=== PATIENT | male | born 1965 | race American Indian/Alaskan Native ===

== ENCOUNTER 2017-01-24 19:58 | Inpatient (IN) | payer MEDICAID ==
[~2017-01-24] VITALS: Ht 172.7 cm; Wt 76.7 kg
[~2017-01-24 19:58] MED LIST: LISI-167 PO; METF500T4 PO; SIMV10TA3 PO
[2017-01-24] MEDS ORDERED: METOPROLOL 1 MG/ML, 5ML ONE ×2 (20:29→21:01)
[2017-01-24] MEDS ORDERED: LORazepam 2 MG/ML, 1ML IVPush ONE ×3 (20:30→22:30)
[2017-01-24] MEDS ORDERED: LORazepam 2 MG/ML, 1ML ONE ×2 (20:30→22:05)
[2017-01-24] MEDS ORDERED: ASPIRIN 81 MG TABLET CHEW ONE (20:30)
[2017-01-24] MEDS ORDERED: SODIUM CHLORIDE 0.9% 1,000ML IVBOLUS ONE (20:30)
[2017-01-24] MEDS ORDERED: ASPIRIN 81 MG TABLET CHEW PO ONE (20:30)
[2017-01-24] MEDS ORDERED: SODIUM CHLORIDE FLUSH 10ML SYR IVF ONE (20:30)
[2017-01-24] MEDS: METOPROLOL 1 MG/ML, 5ML IVPush PRN ×3 (20:36→21:12)
[2017-01-24 20:55] LABS: ASPARTATE AMINO TRANSFERASE 149 U/L (15-37); BLOOD UREA NITROGEN 10 mg/dL (7-18)
[2017-01-24] MEDS ORDERED: METF10002 PO (20:55)
[2017-01-24] MEDS ORDERED: ASPI-496 PO (20:55)
[2017-01-24] MEDS ORDERED: METO50TA82 PO (20:55)
[2017-01-24 21:00] LABS: IS PT STATUS REG ER OR PRE ER? YES
[2017-01-24] MEDS ORDERED: METOPROLOL TARTRATE 50 MG TABLET ONE (21:58)
[2017-01-24] MEDS ORDERED: METOPROLOL TARTRATE 50 MG TABLET PO ONE (22:00)
[2017-01-25 01:30] VITALS: BP 132/79
[2017-01-25] MEDS ORDERED: POTASSIUM CHLORIDE 20 MEQ, MAGNESIUM SULFATE 2 GM, THIAMINE 100 MG, MVI ADULT 10 ML, FO... IV SCH (01:41)
[2017-01-25 02:00] VITALS: BP 115/82
[2017-01-25] MEDS ORDERED: hydrALAzine 20 MG/ML, 1ML IVPush PRN (02:00)
[2017-01-25] MEDS ORDERED: OXYcodone IR 5MG TABLET PO PRN (02:00)
[2017-01-25] MEDS ORDERED: ENALAPRILAT 1.25 MG/ML, 2ML IVPush PRN ×2 (02:00→12:20)
[2017-01-25] MEDS ORDERED: POTASSIUM CHLORIDE 40 MEQ in SODIUM CHLORIDE 0.9% 500 ML IV ONE (02:00)
[2017-01-25] MEDS ORDERED: ONDANSETRON 2MG/ML, 2ML IVPush PRN (02:00)
[2017-01-25] MEDS ORDERED: DOCUSATE 100 MG CAPSULE PO PRN (02:00)
[2017-01-25] MEDS ORDERED: BISACODYL 10 MG SUPP PR PRN (02:00)
[2017-01-25] MEDS ORDERED: POLYETHYLENE GLYCOL 17 GM PACKET PO PRN (02:00)
[2017-01-25] MEDS ORDERED: morphine SULFATE 10 MG/ML, 1ML IVPush PRN (02:00)
[2017-01-25] MEDS ORDERED: LORazepam 1MG TABLET PO PRN ×4 (02:30)
[2017-01-25] MEDS ORDERED: LORazepam 0.5MG TABLET PO PRN (02:30)
[2017-01-25] MEDS ORDERED: LORazepam 2 MG/ML, 1ML IV PRN ×5 (02:30)
[2017-01-25] MEDS: HEPARIN 5,000 UNITS/ML, 1ML SQ SCH ×3 (02:41→17:48)
[2017-01-25] MEDS: INSULIN ASPART 100 UNITS/ML, PEN SQ-INSULIN SCH ×5 (03:14→20:47)
[2017-01-25 03:30] LABS: PATH.CAST-FLAG NOT PRESENT; SPERM-FLAG NOT PRESENT; SRC-FLAG NOT PRESENT; XTAL-FLAG NOT PRESENT; YLC-FLAG NOT PRESENT
[2017-01-25] MEDS ORDERED: ATOR20TA PO (04:12)
[2017-01-25] MEDS ORDERED: OMEG1CAP6 PO (04:15)
[2017-01-25] MEDS: ASPIRIN 325 MG TABLET EC PO SCH (05:55)
[2017-01-25 06:47] VITALS: BP 116/82
[2017-01-25] MEDS: METOPROLOL TARTRATE 50 MG TABLET PO SCH ×2 (07:51→20:45)
[2017-01-25 08:51] LABS: ASPARTATE AMINO TRANSFERASE 93 U/L (15-37); BLOOD UREA NITROGEN 10 mg/dL (7-18)
[2017-01-25] MEDS ORDERED: TEMPLATE NON-FORMULARY MED. (Metformin Hcl** 1,000 MG) PO SCH (09:00)
[2017-01-25] MEDS ORDERED: ASPIRIN 81 MG TABLET EC PO SCH (09:00)
[2017-01-25 15:09] VITALS: BP 106/84
[2017-01-25 18:36] VITALS: BP 116/68
[2017-01-26 00:15] VITALS: BP 96/74
[2017-01-26] MEDS: HEPARIN 5,000 UNITS/ML, 1ML SQ SCH (02:43)
[2017-01-26 05:36] LABS: BLOOD UREA NITROGEN 13 mg/dL (7-18)
[2017-01-26] MEDS: ASPIRIN 325 MG TABLET EC PO SCH (05:36)
[2017-01-26 05:39] LABS: ASPARTATE AMINO TRANSFERASE 87 U/L (15-37)
[2017-01-26 06:54] LABS: DIFF TOTAL CELLS COUNTED 100 CELL DIFF
[2017-01-26 06:57] LABS: VERIFY COUNTS? YES
[2017-01-26 06:58] LABS: LARGE PLATELETS 1+
[2017-01-26] MEDS ORDERED: MULTIVITAMIN 1 TABLET PO SCH (09:00)
[2017-01-26] MEDS ORDERED: THIAMINE 100MG TABLET PO SCH (09:00)
[2017-01-26] MEDS ORDERED: FOLIC ACID 1 MG TABLET PO SCH (09:00)
[2017-01-26] MEDS ORDERED: POTASSIUM CHLORIDE 20 MEQ, MAGNESIUM SULFATE 2 GM, THIAMINE 100 MG, MVI ADULT 10 ML, FO... IV SCH (09:00)
[2017-01-26] MEDS ORDERED: SODIUM CHLORIDE 0.9% 1,000 ML IV SCH ×2 (17:00)
== END 2017-01-26 07:32 | disposition left against medical advice (07) | DRG 894 ==
LOC: ED 22:18 → EDIP 22:29 → 4WST 01-25 00:41
PROVIDERS: ADMIT Internal Medicine; ATTEND Internal Medicine
DX: F10.239 Alcohol dependence with withdrawal, unspecified (principal); N17.0 Acute kidney failure with tubular necrosis; E87.2 Acidosis; E87.1 Hypo-osmolality and hyponatremia; D68.69 Other thrombophilia; I48.92 Unspecified atrial flutter; R56.9 Unspecified convulsions; E87.6 Hypokalemia; I10 Essential (primary) hypertension; E78.5 Hyperlipidemia, unspecified; K70.10 Alcoholic hepatitis without ascites; E11.65 Type 2 diabetes mellitus with hyperglycemia; F17.200 Nicotine dependence, unspecified, uncomplicated; Z53.21 Procedure and treatment not carried out due to patient leaving prior to being seen by health care provider; I48.0 Paroxysmal atrial fibrillation; Z79.82 Long term (current) use of aspirin; Z79.899 Other long term (current) drug therapy; Z79.84 Long term (current) use of oral hypoglycemic drugs
CPT/HCPCS: 36415; 71010; 80053; 80061; 80307; 81001; 82010; 82800; 82962; 83036; 83735; 84439; 84443; 84484; 85025; 85610; 85730; 93005; 96361; 96374; 96375; 96376; J1644; J1815; J3411; J3475; J3480; J7042; J2060; J7030; J7040

== ENCOUNTER 2017-06-23 17:00 | Emergency (ER) | payer MEDICAID ==
[~2017-06-23] VITALS: Ht 172.7 cm; Wt 80.9 kg
[~2017-06-23 17:00] MED LIST changes: +ASPI-496 PO; +ATOR20TA PO; +METF10002 PO; +METO50TA82 PO; +OMEG1CAP6 PO; +WARF4TAB PO
[2017-06-23] MEDS ORDERED: SOTA80TA PO (17:51)
[2017-06-23 18:33] LABS: HEMATOCRIT 41.3 % (39.2-51.8); HEMOGLOBIN 14.1 g/dL (13.7-18.0); WHITE BLOOD COUNT 5.3 x10^3/uL (3.4-10)
[2017-06-23 18:38] LABS: BLOOD UREA NITROGEN 19 mg/dL (7-18)
[2017-06-23] MEDS ORDERED: PHYTONADIONE 5 MG TABLET PO ONE (19:30)
[2017-06-23 19:44] VITALS: BP 115/81
== END 2017-06-23 20:10 | disposition home or self-care (01) ==
LOC: ED 19:25
DX: T45.515A Adverse effect of anticoagulants, initial encounter (principal); E11.9 Type 2 diabetes mellitus without complications; E78.5 Hyperlipidemia, unspecified; I48.91 Unspecified atrial fibrillation; I10 Essential (primary) hypertension; I25.2 Old myocardial infarction; Z79.01 Long term (current) use of anticoagulants
CPT/HCPCS: 36415; 80048; 81001; 82040; 85025; 85610; 85730; 87086; 99284

== ENCOUNTER 2017-09-02 22:01 | Emergency (ER) | payer MEDICAID ==
[~2017-09-02] VITALS: Ht 172.7 cm; Wt 80.0 kg
[~2017-09-02 22:01] MED LIST changes: +SOTA80TA PO
[2017-09-02 22:05] VITALS: BP 146/97
== END 2017-09-02 22:53 | disposition left against medical advice (07) ==
LOC: ED 22:18
DX: F10.220 Alcohol dependence with intoxication, uncomplicated (principal); S09.90XA Unspecified injury of head, initial encounter; E11.65 Type 2 diabetes mellitus with hyperglycemia; I48.91 Unspecified atrial fibrillation; I25.2 Old myocardial infarction; Z79.84 Long term (current) use of oral hypoglycemic drugs; W19.XXXA Unspecified fall, initial encounter; Y93.89 Activity, other specified; Y99.8 Other external cause status; Y92.009 Unspecified place in unspecified non-institutional (private) residence as the place of occurrence of the external cause
CPT/HCPCS: 70450; 99284

== ENCOUNTER 2017-10-13 18:01 | Emergency (ER) | payer MEDICAID ==
[2017-10-13 18:28] VITALS: BP 109/64
== END 2017-10-13 19:00 ==
LOC: ED 18:25
DX: F10.120 Alcohol abuse with intoxication, uncomplicated (principal); I10 Essential (primary) hypertension; E11.9 Type 2 diabetes mellitus without complications; I25.2 Old myocardial infarction; E78.5 Hyperlipidemia, unspecified; I48.91 Unspecified atrial fibrillation; Z91.14 Patient's other noncompliance with medication regimen
CPT/HCPCS: 99283

== ENCOUNTER 2018-09-05 12:33 | Inpatient (IN) | payer MEDICAID ==
[~2018-09-05] VITALS: Ht 152.4 cm; Wt 72.7 kg
[~2018-09-05 12:33] MED LIST changes: +METF500T17 PO; -METF500T4 PO
--- NOTE | 2018-09-05 12:45 | NUR ---
PT C/O INCREASING SOB ON EXERTION FOR LAST 2 WEEKS WITH HX OF A-FIB. PT REPORTS NOT TAKING HIS COUMADIN FOR 2 MONTHS DUE TO BLEEDING COMPLICATIONS FROM COUMADIN. PT ON MONITOR. IV STARTED. WAITING FOR RESULTS.
[2018-09-05] MEDS ORDERED: ASPIRIN 81 MG TABLET CHEW ONE (12:59)
[2018-09-05] MEDS ORDERED: ASPIRIN 81 MG TABLET CHEW PO ONE (13:00)
[2018-09-05] MEDS ORDERED: SODIUM CHLORIDE FLUSH 10ML SYR IVF ONE (13:00)
[2018-09-05 13:20] LABS: MEAN CORPUSCULAR HEMOGLOBIN 36.4 pg (27.5-34.5); MEAN CORPUSCULAR HGB CONC 34.3 g/dL (33.2-36.2); MEAN CORPUSCULAR VOLUME 106.1 fL (81-97); PLATELET COUNT 271 x10^3/uL (130-400); RED BLOOD COUNT 3.69 x10^6/uL (4.38-5.82); RED CELL DISTRIBUTION WIDTH 15.2 % (9.4-14.8)
[2018-09-05 13:26] LABS: INTERNATIONAL NORMALIZED RATIO 1.4 (0.93-1.1); PROTHROMBIN TIME 14.5 Seconds (9.6-11.5)
[2018-09-05 13:28] LABS: ALANINE AMINOTRANSFERASE 132 U/L (12-78); ALBUMIN 2.3 g/dL (3.4-5.0); ANION GAP 9 mmol/L (5-15); CALCIUM 7.6 mg/dL (8.5-10.1); CHLORIDE 94 mmol/L (98-107); CREATININE 1.15 mg/dL (0.7-1.3)
[2018-09-05 13:32] LABS: ALKALINE PHOSPHATASE 200 U/L (45-117); BILIRUBIN,TOTAL 8.4 mg/dL (0.2-1.0); TOTAL PROTEIN 7.4 g/dL (6.4-8.2); TROPONIN I < 0.015 ng/mL (0.000-0.045)
[2018-09-05 13:35] LABS: MD YES
[2018-09-05 13:52] LABS: <PLATELET ESTIMATE> ADEQUATE; ANISOCYTOSIS 1+; BAND#(MANUAL) 0.45 x10^3/uL; BANDS%(MANUAL) 4 % (0-7); EOS#(MANUAL) 0.23 x10^3/uL (0.0-0.4); EOS% (MANUAL) 2 % (1-7); LARGE PLATELETS 1+; LYMPHS% (MANUAL) 8 % (22-44); MONOS#(MANUAL) 0.57 x10^3/uL (0.3-2.7); MONOS% (MANUAL) 5 % (2-9); POLYCHROMASIA 1+; SEG#(MANUAL) 9.15 x10^3/uL (1.8-6.8); SEGS% (MANUAL) 81 % (42-75)
[2018-09-05] MEDS ORDERED: OMNIPAQUE 350 MG/ML, 100ML BOTTLE ONE (14:35)
--- NOTE | 2018-09-05 14:59 | NUR ---
Ana Maria alvarez in ED - 09/05/18 at 1500 by GWENDOLYN PT MEDICATED FOR PAIN. 3 P'S ADDRESSED. PT UP FOR MED RECHECK.
--- NOTE | 2018-09-05 15:00 | NUR ---
PT NOE IN [facility] IN [facility]. VSS.
--- NOTE | 2018-09-05 15:18 | NUR ---
PT IN [place].
--- NOTE | 2018-09-05 16:27 | NUR ---
BREAK RN: PT TO BE ADMITTED TO CARD TELE, AWAITING BED.
[2018-09-05] MEDS ORDERED: SODIUM CHLORIDE FLUSH 10ML SYR IVF PRN (16:30)
[2018-09-05] MEDS ORDERED: MORPHINE SULFATE 4 MG/ML, 1ML IVPush PRN (17:00)
[2018-09-05] MEDS ORDERED: ONDANSETRON 2MG/ML, 2ML IVPush PRN (17:00)
[2018-09-05] MEDS ORDERED: NITROGLYCERIN 0.4 MG BOTTLE (25 TABS) SL PRN (17:00)
[2018-09-05] MEDS ORDERED: LABETALOL 5MG/ML, 20ML IVPush PRN (17:00)
--- NOTE | 2018-09-05 17:31 | NUR ---
Report called to FATOUMATA Adame
[2018-09-05 19:24] LABS: BILIRUBIN, DIRECT 6.6 mg/dL (0.1-0.2)
[2018-09-05 19:29] LABS: BILIRUBIN,INDIRECT 1.5 mg/dL (0.0-2.0); BILIRUBIN,TOTAL 8.1 mg/dL (0.2-1.0); FREE T4 (FREE THYROXINE) 1.59 ng/dL (0.76-1.46); TROPONIN I < 0.015 ng/mL (0.000-0.045)
[2018-09-05 19:37] LABS: ACETAMINOPHEN < 2 mcg/mL (10-30)
[2018-09-05 20:11] VITALS: BP 101/72
[2018-09-05] MEDS: INSULIN LISPRO 100 UNITS/ML, PEN SQ-INSULIN SCH ×2 (21:00→22:31)
[2018-09-05] MEDS: AMOXICILLIN/CLAV 875-125MG TABLET PO SCH (22:28)
[2018-09-05] MEDS: HEPARIN 5,000 UNITS/ML, 1ML SQ SCH (22:29)
[2018-09-05] MEDS: SOTALOL 80MG TABLET PO SCH (22:29)
[2018-09-05] MEDS: POTASSIUM CHLORIDE 20 MEQ TAB.ER.PRT PO SCH (22:33)
[2018-09-05 22:42] VITALS: BP 109/65
[2018-09-05 23:06] LABS: TROPONIN I < 0.015 ng/mL (0.000-0.045)
[2018-09-06 02:00] VITALS: BP 102/72
[2018-09-06 02:05] LABS: MICROSCOPIC NOT IND
[2018-09-06 02:07] LABS: AMPHETAMINE SCREEN, URINE Negative (Negative); BARBITURATE SCREEN, URINE Negative (Negative); BENZODIAZEPINE SCREEN, URINE Negative (Negative); CANNABINOID SCREEN, URINE Negative (Negative); COCAINE SCREEN, URINE Negative (Negative); METHADONE SCREEN, URINE Negative (Negative); OPIATE SCREEN, URINE Negative (Negative)
[2018-09-06 05:15] LABS: BASOPHILS # (AUTO) 0.01 x10^3/uL (0-0.1); BASOPHILS % (AUTO) 0 % (0-1); EOSINOPHILS # (AUTO) 0.19 x10^3/uL (0-0.4); EOSINOPHILS % (AUTO) 2 % (1-7); LYMPHOCYTES % (AUTO) 20 % (22-44); MD NO; MEAN CORPUSCULAR HEMOGLOBIN 36.2 pg (27.5-34.5); MEAN CORPUSCULAR HGB CONC 33.8 g/dL (33.2-36.2); MEAN CORPUSCULAR VOLUME 107.2 fL (81-97); MONOCYTES % (AUTO) 6 % (2-9); NEUTROPHILS # (AUTO) 7.91 x10^3/uL (1.8-6.8); NEUTROPHILS % (AUTO) 73 % (42-75); PLATELET COUNT 243 x10^3/uL (130-400); RED BLOOD COUNT 3.59 x10^6/uL (4.38-5.82); RED CELL DISTRIBUTION WIDTH 15.6 % (9.4-14.8)
[2018-09-06 05:25] LABS: CALCIUM 7.2 mg/dL (8.5-10.1); CHLORIDE 99 mmol/L (98-107)
[2018-09-06] MEDS: HEPARIN 5,000 UNITS/ML, 1ML SQ SCH (05:37)
[2018-09-06 05:39] LABS: ALANINE AMINOTRANSFERASE 128 U/L (12-78); ALKALINE PHOSPHATASE 178 U/L (45-117); ANION GAP 5 mmol/L (5-15); BILIRUBIN,TOTAL 7.3 mg/dL (0.2-1.0); CREATININE 0.69 mg/dL (0.7-1.3); TOTAL PROTEIN 6.9 g/dL (6.4-8.2)
[2018-09-06] MEDS: INSULIN LISPRO 100 UNITS/ML, PEN SQ-INSULIN SCH ×2 (07:00→11:00)
[2018-09-06 07:09] VITALS: BP 115/80
[2018-09-06] MEDS: AMOXICILLIN/CLAV 875-125MG TABLET PO SCH (08:38)
[2018-09-06] MEDS: SOTALOL 80MG TABLET PO SCH (08:38)
[2018-09-06] MEDS: POTASSIUM CHLORIDE 20 MEQ TAB.ER.PRT PO SCH (08:38)
[2018-09-06] MEDS ORDERED: ASPIRIN 81 MG TABLET EC PO SCH (09:00)
[2018-09-06] MEDS ORDERED: THIAMINE 100MG TABLET PO SCH (09:00)
[2018-09-06] MEDS ORDERED: ASPIRIN 81 MG TABLET CHEW PO SCH (09:00)
[2018-09-06] MEDS ORDERED: MAGNESIUM SULFATE PMX 2GM/50ML 50 ML IV ONE (10:00)
[2018-09-06 10:33] LABS: HEMOGLOBIN A1C 5.4 % (4.2-6.3)
[2018-09-06 12:52] LABS: INTERNATIONAL NORMALIZED RATIO 1.39 (0.93-1.1); PROTHROMBIN TIME 14.4 Seconds (9.6-11.5)
== END 2018-09-06 12:43 | disposition left against medical advice (07) | DRG 603 ==
LOC: ED 16:10 → EDIP 16:11 → ED 16:22 → 5SO 18:40
PROVIDERS: ADMIT Internal Medicine; ATTEND Internal Medicine
DX: L03.031 Cellulitis of right toe (principal); E44.0 Moderate protein-calorie malnutrition; E87.1 Hypo-osmolality and hyponatremia; M86.171 Other acute osteomyelitis, right ankle and foot; N39.0 Urinary tract infection, site not specified; R17 Unspecified jaundice; I48.91 Unspecified atrial fibrillation; D50.9 Iron deficiency anemia, unspecified; D53.9 Nutritional anemia, unspecified; E11.69 Type 2 diabetes mellitus with other specified complication; Z53.21 Procedure and treatment not carried out due to patient leaving prior to being seen by health care provider; E78.5 Hyperlipidemia, unspecified; E83.42 Hypomagnesemia; E87.6 Hypokalemia; F10.10 Alcohol abuse, uncomplicated; I10 Essential (primary) hypertension; Z91.14 Patient's other noncompliance with medication regimen; Z91.81 History of falling
CPT/HCPCS: 36415; 71046; 71275; 74181; 76700; 78227; 80053; 80307; 81003; 82247; 82248; 82607; 82962; 83036; 83690; 83735; 83880; 84439; 84443; 84484; 85025; 85610; 85730; 86038; 93005; 93306; 99285; G0378; J1644; Q9967; A9537; C9898; J1815; J3475

== ENCOUNTER → 2018-12-11 | Outpatient (CLI) | payer MEDICAID ==
[~2018-12-11] MED LIST changes: +MULT-658 PO
[2018-12-11 09:27] LABS: BASOPHILS # (AUTO) 0.04 x10^3/uL (0-0.1); BASOPHILS % (AUTO) 1 % (0-1); EOSINOPHILS # (AUTO) 0.17 x10^3/uL (0-0.4); EOSINOPHILS % (AUTO) 3 % (1-7); LYMPHOCYTES # (AUTO) 2.25 x10^3/uL (1-3.4); LYMPHOCYTES % (AUTO) 41 % (22-44); MD NO; MEAN CORPUSCULAR HEMOGLOBIN 31.6 pg (27.5-34.5); MEAN CORPUSCULAR HGB CONC 33.1 g/dL (33.2-36.2); MEAN CORPUSCULAR VOLUME 95.3 fL (81-97); MEAN PLATELET VOLUME 9.3 fL (7.4-10.4); MONOCYTES # (AUTO) 0.45 x10^3/uL (0.2-0.8); MONOCYTES % (AUTO) 8 % (2-9); NEUTROPHILS # (AUTO) 2.59 x10^3/uL (1.8-6.8); NEUTROPHILS % (AUTO) 47 % (42-75); PLATELET COUNT 124 x10^3/uL (130-400); RED BLOOD COUNT 4.27 x10^6/uL (4.38-5.82); RED CELL DISTRIBUTION WIDTH 13.2 % (9.4-14.8)
[2018-12-11 09:35] LABS: ALANINE AMINOTRANSFERASE 29 U/L (12-78); ALBUMIN 3.6 g/dL (3.4-5.0); ANION GAP 4 mmol/L (5-15); CHLORIDE 106 mmol/L (98-107); CREATININE 1.12 mg/dL (0.7-1.3)
[2018-12-11 09:38] LABS: ALKALINE PHOSPHATASE 91 U/L (45-117); BILIRUBIN,TOTAL 0.9 mg/dL (0.2-1.0); TOTAL PROTEIN 8.1 g/dL (6.4-8.2)
[2018-12-11 09:39] LABS: INTERNATIONAL NORMALIZED RATIO 1.81 (0.93-1.1); PROTHROMBIN TIME 18.6 Seconds (9.6-11.5)
== END | disposition home or self-care (01) ==
LOC: STAR 08:18
PROVIDERS: ATTEND Internal Medicine Gastroenterology
DX: Z01.818 Encounter for other preprocedural examination (principal); R86.2 Abnormal level of other drugs, medicaments and biological substances in specimens from male genital organs; R74.8 Abnormal levels of other serum enzymes; R93.89 Abnormal findings on diagnostic imaging of other specified body structures; I48.91 Unspecified atrial fibrillation; Z79.01 Long term (current) use of anticoagulants
CPT/HCPCS: 36415; 80053; 85025; 85610; 85730; 93005

== ENCOUNTER 2018-12-19 07:31 | Day surgery (SDC) | payer MEDICAID ==
[~2018-12-19] VITALS: Ht 170.2 cm; Wt 72.8 kg
[2018-12-19 08:09] VITALS: BP 118/81
[2018-12-19] MEDS ORDERED: LACTATED RINGERS 1,000 ML IV SCH (08:15)
[2018-12-19] MEDS ORDERED: FENTANYL PF 100 MCG/2ML ONE (09:36)
[2018-12-19] MEDS ORDERED: MIDAZOLAM 1 MG/ML, 2ML ONE (09:36)
[2018-12-19] MEDS ORDERED: PROPOFOL 50 ML ONE (09:37)
[2018-12-19] MEDS ORDERED: PHENYLEPHRINE 10 MG/ML ONE (09:50)
[2018-12-19] MEDS ORDERED: PIPERACILLIN/TAZO/PMX 3.375GM 50 ML ONE (09:57)
[2018-12-19] MEDS ORDERED: FENTANYL PF 100 MCG/2ML IV PRN (10:00)
[2018-12-19] MEDS ORDERED: PROMETHAZINE 25 MG/ML, 1ML IV PRN (10:00)
[2018-12-19] MEDS ORDERED: MEPERIDINE/PF 25MG/0.5ML IVPush PRN (10:00)
[2018-12-19] MEDS ORDERED: OXYcodone 5 MG/5 ML ORAL.SOL UDC PO PRN (10:00)
[2018-12-19] MEDS ORDERED: hydrALAzine 20 MG/ML, 1ML IV PRN (10:00)
[2018-12-19] MEDS ORDERED: HALOPERIDOL 5 MG/ML IV PRN (10:00)
[2018-12-19] MEDS ORDERED: ACETAMINOPHEN 325 MG TABLET PO PRN (10:00)
[2018-12-19] MEDS ORDERED: HYDROmorphone 2 MG/ML, 1ML IVPush PRN (10:00)
== END 2018-12-19 12:10 | disposition home or self-care (01) ==
LOC: OUT 07:31
PROVIDERS: ATTEND Internal Medicine Gastroenterology
DX: K29.50 Unspecified chronic gastritis without bleeding (principal); K86.2 Cyst of pancreas; E11.9 Type 2 diabetes mellitus without complications; I48.91 Unspecified atrial fibrillation; I25.10 Atherosclerotic heart disease of native coronary artery without angina pectoris; I10 Essential (primary) hypertension; E78.5 Hyperlipidemia, unspecified; Z79.84 Long term (current) use of oral hypoglycemic drugs; Z79.01 Long term (current) use of anticoagulants; Z79.899 Other long term (current) drug therapy; Z87.891 Personal history of nicotine dependence
CPT/HCPCS: 43239; 43242; 82962; 88305; J2250; J2370; J2543; J2704; J3010; J7120

== ENCOUNTER 2019-11-08 14:00 | Inpatient (IN) | payer MEDICAID ==
[~2019-11-08] VITALS: Ht 170.2 cm; Wt 69.3 kg
[~2019-11-08 14:00] MED LIST changes: +FOLIC ACID 1 MG TABLET PO ONE; +SIMV10TA18 PO; -SIMV10TA3 PO
[2019-11-08] MEDS ORDERED: FAMOTIDINE 20 MG/2 ML ONE (14:24)
[2019-11-08 14:27] LABS: BASOPHILS # (AUTO) 0.03 x10^3/uL (0-0.1); BASOPHILS % (AUTO) 0 % (0-1); EOSINOPHILS % (AUTO) 0 % (1-7); LYMPHOCYTES # (AUTO) 1.43 x10^3/uL (1-3.4); LYMPHOCYTES % (AUTO) 13 % (22-44); MD NO; MEAN CORPUSCULAR HEMOGLOBIN 31.9 pg (27.5-34.5); MEAN CORPUSCULAR HGB CONC 32.7 g/dL (33.2-36.2); MEAN CORPUSCULAR VOLUME 97.5 fL (81-97); MEAN PLATELET VOLUME 8.2 fL (7.4-10.4); MONOCYTES # (AUTO) 0.42 x10^3/uL (0.2-0.8); MONOCYTES % (AUTO) 4 % (2-9); NEUTROPHILS # (AUTO) 9.35 x10^3/uL (1.8-6.8); NEUTROPHILS % (AUTO) 83 % (42-75); PLATELET COUNT 188 x10^3/uL (130-400); RED BLOOD COUNT 4.86 x10^6/uL (4.38-5.82); RED CELL DISTRIBUTION WIDTH 15.5 % (9.4-14.8)
[2019-11-08] MEDS ORDERED: SODIUM CHLORIDE 0.9% 1,000ML IVBOLUS ONE (14:30)
[2019-11-08] MEDS ORDERED: FAMOTIDINE 20 MG/2 ML IVPush ONE (14:30)
[2019-11-08 14:40] LABS: ALANINE AMINOTRANSFERASE 125 U/L (12-78); ALBUMIN 4.6 g/dL (3.4-5.0); ANION GAP 32 mmol/L (5-15); CALCIUM 8.5 mg/dL (8.5-10.1); CHLORIDE 95 mmol/L (98-107); CREATININE 1.39 mg/dL (0.7-1.3)
[2019-11-08 14:42] LABS: ALKALINE PHOSPHATASE 142 U/L (45-117); BILIRUBIN,TOTAL 1.7 mg/dL (0.2-1.0); TOTAL PROTEIN 9.3 g/dL (6.4-8.2)
[2019-11-08] MEDS ORDERED: LORazepam 2 MG/ML, 1ML ONE (14:59)
[2019-11-08] MEDS ORDERED: LORazepam 2 MG/ML, 1ML IVPush ONE (15:00)
--- NOTE | 2019-11-08 15:02 | NUR ---
LATE NOTE 1407. CONTINUATION OF EMS LITER OF NS. WILL REASSESS UPON COMPLETION.
--- NOTE | 2019-11-08 15:04 | NUR ---
LATE NOTE FOR 1445: COMPLETION OF EMS LITER. 2ND LITER OF NS STARTED.
[2019-11-08] MEDS ORDERED: D5%-0.45% NACL 1,000 ML IV SCH (16:16)
[2019-11-08] MEDS ORDERED: GLUCAGON 1 MG IM PRN (16:30)
[2019-11-08] MEDS ORDERED: BACLOFEN 10 MG TABLET PO PRN (16:30)
[2019-11-08] MEDS ORDERED: DEXTROSE 4 GM TAB.CHEW PO PRN (16:30)
[2019-11-08] MEDS ORDERED: GABAPENTIN 300 MG CAPSULE PO PRN (16:30)
[2019-11-08] MEDS ORDERED: ONDANSETRON 2MG/ML, 2ML IVPush PRN (16:30)
[2019-11-08] MEDS ORDERED: DEXTROSE 50%, 50ML SYRINGE IVPush PRN (16:30)
[2019-11-08] MEDS ORDERED: OXYcodone IR 5MG TABLET PO PRN (16:30)
[2019-11-08] MEDS ORDERED: ONDANSETRON ODT 4 MG PO PRN (16:30)
[2019-11-08] MEDS ORDERED: ACETAMINOPHEN 325 MG TABLET PO PRN (16:30)
[2019-11-08] MEDS ORDERED: morphine SULFATE 10 MG/ML, 1ML IVPush PRN (16:30)
[2019-11-08] MEDS ORDERED: hydrALAzine 20 MG/ML, 1ML IVPush PRN (16:30)
[2019-11-08] MEDS ORDERED: LORazepam 2 MG/ML, 1ML IV PRN ×5 (17:00)
[2019-11-08] MEDS ORDERED: LORazepam 1MG TABLET PO PRN ×4 (17:00)
[2019-11-08] MEDS ORDERED: LORazepam 0.5MG TABLET PO PRN (17:00)
[2019-11-08] MEDS ORDERED: ASPI81TA14 PO (17:14)
[2019-11-08] MEDS ORDERED: EMPA10TA PO (17:16)
[2019-11-08] MEDS ORDERED: THIAMINE 100 MG/ML, 2ML IM ONE (17:54)
[2019-11-08] MEDS ORDERED: THIAMINE 200 MG in DEXTROSE 5% 50 ML IVPB ONE (18:00)
[2019-11-08] MEDS ORDERED: FOLIC ACID 1 MG TABLET ONE (18:18)
[2019-11-08] MEDS: INSULIN LISPRO 100 UNITS/ML, PEN SQ-INSULIN SCH ×2 (18:22→20:12)
[2019-11-08] MEDS: HEPARIN 5,000 UNITS/ML, 1ML SQ SCH (18:24)
[2019-11-08 18:37] VITALS: BP 152/91
[2019-11-08 19:26] LABS: CALCIUM 7.5 mg/dL (8.5-10.1); CREATININE 1.12 mg/dL (0.7-1.3)
[2019-11-08 19:40] VITALS: BP 145/81
[2019-11-08 19:50] LABS: ANION GAP 26 mmol/L (5-15); CHLORIDE 105 mmol/L (98-107)
[2019-11-08] MEDS ORDERED: SODIUM BICARB 8.4%, 50ML SYRINGE IVPush ONE (20:00)
[2019-11-08] MEDS ORDERED: SODIUM BICARBONATE 1 MEQ/ML, 50ML VIAL IVPush ONE (20:00)
[2019-11-08] MEDS: SOTALOL 80MG TABLET PO SCH (20:10)
[2019-11-08] MEDS: SODIUM CHLORIDE FLUSH 10ML SYR IVF SCH (20:11)
[2019-11-08] MEDS ORDERED: INSULIN GLARGINE 100 UNITS/ML, PEN SQ-INSULIN SCH (21:00)
[2019-11-08 22:12] LABS: ANION GAP 23 mmol/L (5-15); CALCIUM 7.3 mg/dL (8.5-10.1); CHLORIDE 105 mmol/L (98-107); CREATININE 1.06 mg/dL (0.7-1.3)
[2019-11-08] MEDS ORDERED: POTASSIUM CHLORIDE 40 MEQ in SODIUM CHLORIDE 0.9% 500 ML IV ONE (22:30)
[2019-11-08] MEDS: SODIUM BICARBONATE 8.4% 150 MEQ in DEXTROSE 5% 1,000 ML IV SCH (22:54)
[2019-11-09 00:30] VITALS: BP 121/70
[2019-11-09] MEDS: HEPARIN 5,000 UNITS/ML, 1ML SQ SCH ×2 (02:29→09:42)
[2019-11-09 05:42] LABS: BASOPHILS # (AUTO) 0.02 x10^3/uL (0-0.1); BASOPHILS % (AUTO) 0 % (0-1); EOSINOPHILS # (AUTO) 0.03 x10^3/uL (0-0.4); EOSINOPHILS % (AUTO) 1 % (1-7); LYMPHOCYTES # (AUTO) 1.69 x10^3/uL (1-3.4); LYMPHOCYTES % (AUTO) 34 % (22-44); MD NO; MEAN CORPUSCULAR HEMOGLOBIN 32.3 pg (27.5-34.5); MEAN CORPUSCULAR HGB CONC 33.4 g/dL (33.2-36.2); MEAN CORPUSCULAR VOLUME 96.6 fL (81-97); MEAN PLATELET VOLUME 8.3 fL (7.4-10.4); MONOCYTES # (AUTO) 0.36 x10^3/uL (0.2-0.8); MONOCYTES % (AUTO) 7 % (2-9); NEUTROPHILS # (AUTO) 2.83 x10^3/uL (1.8-6.8); NEUTROPHILS % (AUTO) 58 % (42-75); PLATELET COUNT 109 x10^3/uL (130-400); RED BLOOD COUNT 3.63 x10^6/uL (4.38-5.82); RED CELL DISTRIBUTION WIDTH 15.1 % (9.4-14.8)
[2019-11-09 05:52] LABS: ANION GAP 17 mmol/L (5-15); CALCIUM 7.7 mg/dL (8.5-10.1); CHLORIDE 108 mmol/L (98-107)
[2019-11-09 05:53] LABS: CREATININE 1.11 mg/dL (0.7-1.3)
[2019-11-09 06:30] VITALS: BP 106/61
[2019-11-09] MEDS: INSULIN LISPRO 100 UNITS/ML, PEN SQ-INSULIN SCH ×3 (07:00→16:31)
[2019-11-09] MEDS ORDERED: POTASSIUM CHLORIDE 20 MEQ TAB.ER.PRT ONE (09:34)
[2019-11-09] MEDS ORDERED: OMEPRAZOLE 20 MG CAPSULE.DR ONE (09:34)
[2019-11-09] MEDS: SODIUM BICARBONATE 8.4% 150 MEQ in DEXTROSE 5% 1,000 ML IV SCH (09:41)
[2019-11-09] MEDS: POTASSIUM CHLORIDE 20 MEQ TAB.ER.PRT PO SCH ×2 (09:42→16:32)
[2019-11-09] MEDS: SOTALOL 80MG TABLET PO SCH (09:42)
[2019-11-09] MEDS: OMEPRAZOLE 20 MG CAPSULE.DR PO SCH ×2 (09:42→16:31)
[2019-11-09] MEDS: SODIUM CHLORIDE FLUSH 10ML SYR IVF SCH (09:43)
[2019-11-09] MEDS ORDERED: POTASSIUM CHLORIDE 40 MEQ in SODIUM CHLORIDE 0.9% 500 ML IV ONE (10:00)
[2019-11-09 12:06] VITALS: BP 115/64
[2019-11-09 15:48] LABS: ANION GAP 10 mmol/L (5-15); CALCIUM 7.8 mg/dL (8.5-10.1); CHLORIDE 105 mmol/L (98-107); CREATININE 1.09 mg/dL (0.7-1.3)
[2019-11-09] MEDS ORDERED: POTA20TA6 PO (16:06)
== END 2019-11-09 17:53 | disposition home or self-care (01) | DRG 280 ==
LOC: ED 15:21 → EDIP 16:09 → 4EST 17:50
PROVIDERS: ADMIT Hospitalist; ATTEND Family Medicine
DX: K70.10 Alcoholic hepatitis without ascites (principal); E87.2 Acidosis; D68.69 Other thrombophilia; E11.51 Type 2 diabetes mellitus with diabetic peripheral angiopathy without gangrene; I48.0 Paroxysmal atrial fibrillation; E86.0 Dehydration; D13.6 Benign neoplasm of pancreas; D72.829 Elevated white blood cell count, unspecified; E78.5 Hyperlipidemia, unspecified; E87.6 Hypokalemia; F10.10 Alcohol abuse, uncomplicated; I10 Essential (primary) hypertension; R00.0 Tachycardia, unspecified; R74.0 Nonspecific elevation of levels of transaminase and lactic acid dehydrogenase [LDH]; Z83.3 Family history of diabetes mellitus; Z91.19 Patient's noncompliance with other medical treatment and regimen
CPT/HCPCS: 36415; 36600; 76700; 80048; 80053; 82803; 82962; 83605; 83690; 83735; 83930; 84100; 85025; 93005; 93922; G0378; J1644; J3411; J3480; J7070; J1815; J2060; J3490; J7030; J7040

== ENCOUNTER 2020-01-08 12:04 | Day surgery (SDC) | payer MEDICAID ==
[~2020-01-08] VITALS: Ht 170.2 cm; Wt 69.5 kg
[~2020-01-08 12:04] MED LIST changes: +ASPI81TA14 PO; +EMPA10TA PO; -FOLIC ACID 1 MG TABLET PO ONE; +POTA20TA6 PO
[2020-01-08] MEDS ORDERED: LACTATED RINGERS 1,000 ML IV SCH (12:26)
[2020-01-08] MEDS ORDERED: CHLORHEXIDINE 15 ML UDC MM ONE (12:30)
[2020-01-08] MEDS ORDERED: LIDOCAINE-MPF 1%, 2ML INFIL ONE (12:30)
[2020-01-08 12:43] VITALS: BP 123/75
[2020-01-08] MEDS ORDERED: PROPOFOL 50 ML ONE (13:40)
[2020-01-08] MEDS ORDERED: EPHEDRINE 50 MG/ML, 1ML IM PRN (14:00)
[2020-01-08] MEDS ORDERED: FENTANYL PF 100 MCG/2ML IV PRN (14:00)
[2020-01-08] MEDS ORDERED: morphine SULFATE 10 MG/ML, 1ML IVPush PRN (14:00)
[2020-01-08] MEDS ORDERED: ONDANSETRON 2MG/ML, 2ML IVPush PRN (14:00)
[2020-01-08] MEDS ORDERED: DIPHENHYDRAMINE 50 MG/ML, 1ML IVPush PRN (14:00)
[2020-01-08] MEDS ORDERED: OXYcodone 5 MG/5 ML ORAL.SOL UDC PO PRN (14:00)
[2020-01-08] MEDS ORDERED: PROMETHAZINE 25 MG/ML, 1ML IVPush PRN (14:00)
[2020-01-08] MEDS ORDERED: MEPERIDINE/PF 25MG/0.5ML IVPush PRN (14:00)
[2020-01-08] MEDS ORDERED: EPHEDRINE 50 MG/ML, 1ML IVPush PRN (14:00)
[2020-01-08] MEDS ORDERED: LABETALOL 5MG/ML, 20ML IV PRN (14:00)
[2020-01-08] MEDS ORDERED: DIAZEPAM 5 MG/ML, 2ML IVPush PRN (14:00)
== END 2020-01-08 15:10 | disposition home or self-care (01) ==
LOC: OUT 12:04
PROVIDERS: ATTEND Internal Medicine Gastroenterology
DX: K86.2 Cyst of pancreas (principal); Z11.59 Encounter for screening for other viral diseases; K29.50 Unspecified chronic gastritis without bleeding; Z79.899 Other long term (current) drug therapy; Z91.048 Other nonmedicinal substance allergy status
CPT/HCPCS: 36415; 43239; 43242; 82962; 87635; 88305; 93005; J2704; J7120